=== PATIENT | male | born 1940 | race African-American/Black ===

== ENCOUNTER → 2016-05-21 | Outpatient (CLI) | payer MEDICARE, OTHER ==
[~2016-05-21] MED LIST: AMIT50TA3 PO; AMLO5TAB2 PO; ATOR40TA52 PO; BACL-63 PO; CALCTAB25 PO; FINA5TAB4 PO; FURO40TA4 PO; GABA-339 PO; GABA300C8 PO; GLIP-116 PO; INSUINJ49 SC; LATA0.0015 EACHEYE; LISI-285 PO; METF-312 PO; OMEP20CA5 PO; OXYB10TA13 PO; RANI150C11 PO; TIMO0.5S32 OP; ZOLP10TA6 PO; [UNRECOGNIZED DRUG - CODE] PO; [UNRECOGNIZED DRUG - CODE] PO
== END | disposition home or self-care (01) ==
LOC: LAB 11:00
PROVIDERS: ATTEND Physician Assistant
DX: B07.9 Viral wart, unspecified (principal)

== ENCOUNTER 2016-11-27 13:42 | Emergency (ER) | payer MEDICARE, OTHER ==
[~2016-11-27] VITALS: Ht 167.6 cm; Wt 95.3 kg
[~2016-11-27 13:42] MED LIST changes: +GABA-497 PO; -GABA300C8 PO; -METF-312 PO; +METF-370 PO; -OMEP20CA5 PO; +OMEP20CA74 PO
[2016-11-27 14:26] VITALS: BP 118/69
[2016-11-27] MEDS ORDERED: KETOROLAC TROMETH 60MG/2ML VIAL IM ONE (15:00)
== END 2016-11-27 15:26 | disposition home or self-care (01) ==
LOC: ER 13:42
DX: M17.11 Unilateral primary osteoarthritis, right knee (principal); I10 Essential (primary) hypertension; E11.9 Type 2 diabetes mellitus without complications; J44.9 Chronic obstructive pulmonary disease, unspecified; F17.210 Nicotine dependence, cigarettes, uncomplicated; Z88.0 Allergy status to penicillin; Z79.899 Other long term (current) drug therapy
CPT/HCPCS: 96372; 99283; J1885